=== PATIENT | male | born 1955 | race Caucasian/White ===

== ENCOUNTER → 2018-05-14 15:24 | Outpatient (CLI) | payer OTHER, SELFPAY | PROVIDERS: Family Provider Family Medicine; PCP Family Medicine; Visit Provider Orthopaedic Surgery | DX: M25.531 Pain in right wrist (principal) | CPT/HCPCS: 73110 ==

== ENCOUNTER 2022-12-09 14:05 | Emergency (ER) | payer MEDICARE, OTHER, SELFPAY ==
[2022-12-09 14:05] VITALS: BP 142/96; PULSE 70; RESP 20; TEMP 36.4; O2SAT 99; BMI 27.8
[2022-12-09 14:23] VITALS: BP 142/96; PULSE 70; RESP 20; TEMP 36.4; O2SAT 99
--- NOTE | 2022-12-09 14:42 | EKG12_ITS ---
Test Reason : SOB Blood Pressure : / mmHG Vent. Rate : 061 BPM Atrial Rate : 061 BPM P-R Int : 172 ms QRS Dur : 108 ms QT Int : 410 ms P-R-T Axes : 036 -28 055 degrees QTc Int : 412 ms Normal sinus rhythm with sinus arrhythmia Junctional ST depression, probably normal Borderline ECG Confirmed by ALFREDO SHEPARD, JENNY ([id number]), content editor JUDY ORDONEZ ([id number]) on 12/11/2022 11:15:44 AM Referred By: FRANCISCO/MARCIO Confirmed By:NOHELIA FUENTES MD
--- NOTE | 2022-12-09 14:43 | ED.VIS.DYS ---
HPI History of Present Illness Chief Complaint: Shortness of Breath Detail of Chief Complaint: Shortness of breath Informant: patient Narrative Narrative: Patient presents to the emergency department chief complaint of shortness of breath that started last evening. He has some mild chest discomfort which she has had in the past and thought it was indigestion. Discomfort does not seem to radiate anywhere. Does not seem to be exertional. Patient had some sinus issues that started 3 weeks ago that he used home remedies for but did not get better so a week ago went to primary care physician's office and was started on prednisone as well as Zithromax and albuterol. Patient thought he was started to feel better until last night. He denies fever. He denies recent travel or surgery. He has no heart history. He does have history of cholesterol. [facility] Medical History (Updated 12/09/22 @ 15:[address] Jennifer Vivas, ) High cholesterol Home Medications aspirin 81 mg tablet,delayed release 81 mg PO DAILY 05/14/18 [History Last Taken Unknown] prednisone 20 mg tablet 20 mg PO BID #6 tabs 12/09/22 [Rx Last Taken Unknown] rosuvastatin 5 mg tablet 5 mg PO DAILY 12/09/22 [History Last Taken Unknown] Allergy/AdvReac Type Severity Reaction Status Date / Time No Known Allergies Allergy Unverified 12/09/22 14:09 Family History (Updated 05/14/18 @ 15:01 by Marian Watts) Father Heart disease Surgical History (Updated 04/10/22 @ 18:32 by Desirae Mercado) H/O repair of rotator cuff H/O right knee surgery h/o right wrist fracture Social History (Updated 05/23/18 @ 17:[address] Kathy Lucas, ) Smoking Status: Never smoker ROS ROS ED Review of Systems ROS Unobtainable: other Constitutional Constitutional ED: Reports lethargy; Denies chills, fever(s), sweats or weight loss Eyes Eyes: Denies blurry vision, change in vision or diplopia ENT ENT ED: Denies rhinorrhea or sore throat Cardiovascular Cardiovascular: Reports chest pain; Denies orthopnea or racing heartbeat Respiratory/Chest Respiratory/Chest: Reports dyspnea; Denies cough, dyspnea on exertion, orthopnea or sputum Gastrointestinal Gastrointestinal: Denies abdominal pain, diarrhea, nausea or vomiting Genitourinary Genitourinary ED: Denies dysuria, hematuria or urinary frequency Musculoskeletal Musculoskeletal: Denies arthralgias, back pain, myalgias or neck pain Integumentary Denies abscess, Abrasions or rash Neurologic Neurologic: Denies headache(s) or weakness Psychiatric Psychiatric: Denies anxiety, depression or suicidal thoughts Endocrine Endocrinology: Denies polydipsia, polyphagia or polyuria Hematologic/Lymphatic Hematologic/Lymphatic: Denies easy bleeding, easy bruising or lymphadenopathy Allergic/Immunologic Allergic/Immunologic ED: Denies mouth swelling, tongue swelling or urticaria EXAM Physical Exam Const Vital Signs: 12/09/22 14:05 12/09/22 14:18 12/09/22 14:23 Temperature 97.6 F L 97.6 F L Temperature Source Temporal Temporal Pulse Rate 70 70 Respiratory Rate 20 H 20 H Respiratory Effort Normal Respiratory Depth Normal Respiratory Pattern Normal Blood Pressure 142/96 H 142/96 H Blood Pressure Mean 111 111 Pulse Ox 99 99 Oxygen Delivery Method Room Air Room Air 12/09/22 14:56 Temperature Temperature Source Pulse Rate 55 L Respiratory Rate 18 Respiratory Effort Respiratory Depth Respiratory Pattern Blood Pressure Blood Pressure Mean Pulse Ox Oxygen Delivery Method Positive well nourished and well developed General Appearance ED: well developed and NAD HEENT Reports TM's clear and moist mucous membranes normocephalic and atraumatic; Negative for trauma or tenderness Tympanic Membrane ED: Yes TM's clear Eyes PERRL and EOMs intact bilaterally General Eye ED: Negative for pale conjunctiva or scleral icterus Neck no lymphadenopathy, supple and no JVD General: Negative for tenderness Chest Wall inspection of chest normal and palpation of chest normal Chest: Negative for tenderness Resp normal respiratory effort and clear to auscultation bilaterally Effort and Inspection: Negative for respiratory distress or pain with movement Auscultation: wheezes; Negative for rhonchi or diminished lung sounds Cardio regular rate, regular rhythm, S1 normal heart sound, S2 normal heart sound and no murmurs Peripheral Pulses: pulses 2+ throughout GI normal to inspection, nondistended, normoactive bowel sounds, soft to palpation, non-tender, non-distended and no masses Back/Spine no CVA tenderness and no thoracic nor lumbar tenderness Extremity normal to inspection General Extremety ED: Negative for edema General Extremity: Negative for edema Neuro oriented x3, CN's II-XII intact bilaterally, no sensory deficits noted and gait normal Sensorium / Orientation: awake, alert, oriented to person, oriented to place and oriented to time Motor Exam: strength 5/5 throughout and strength abnormal Psych mental status grossly normal Skin no rashes or lesions noted and no wounds MDM MDM MDM Narrative Medical decision making narrative: Patient presents with nonspecific dyspnea and nondescript chest discomfort that he has had for over 19 hours. EKG obtained was sinus at 61 with no significant changes. Troponin was normal. D-dimer normal. BNP normal chest x-ray unremarkable. Lab work-up unremarkable. He was given a DuoNeb aerosol and did feel improved with it. At this time I will start him on prednisone for 3 more days. He is to continue with albuterol every 4 hours for the next 24 hours and follow-up with his primary care physician 3 to 5 days. Patient advised to return if exertional dyspnea, worsening chest pain, or condition should worsen anyway. Clinically I do not feel he is having an acute coronary syndrome. Lab Data Attestation: I reviewed the patient's lab results. Labs: Laboratory Results - last 24 hr 12/09/22 12/09/22 12/09/22 14:53 14:53 14:53 WBC 5.8 RBC 6.01 Hgb 18.4 H* Hct 53.4 MCV 88.9 MCH 30.6 MCHC 34.5 RDW Std Deviation 41.6 RDW Coeff of Anu 12.7 Plt Count 164 MPV 10.8 Immature Gran % (Auto) 0.500 Neut % (Auto) 73.6 H Lymph % (Auto) 16.5 L [place] % (Auto) 7.3 Eos % (Auto) 1.4 Baso % (Auto) 0.7 Absolute Neuts (auto) 4.2 Absolute Lymphs (auto) 0.95 Nucleated RBC % 0 D-Dimer Quant (PE/DVT) 0.33 Sodium 139 Potassium 3.8 Chloride 108 H Carbon Dioxide 25.0 Anion Gap 6 BUN 19 H Creatinine 1.16 Estim Creat Clear Calc 66.90 Est GFR (MDRD) Af Amer 80 Est GFR (MDRD) Non-Af 66 BUN/Creatinine Ratio 16.4 Glucose 126 H Calcium 10.0 Troponin I High Sens 6 B-Natriuretic Peptide 12/09/22 14:53 WBC RBC Hgb Hct MCV MCH MCHC RDW Std Deviation RDW Coeff of Anu Plt Count MPV Immature Gran % (Auto) Neut % (Auto) Lymph % (Auto) [place] % (Auto) Eos % (Auto) Baso % (Auto) Absolute Neuts (auto) Absolute Lymphs (auto) Nucleated RBC % D-Dimer Quant (PE/DVT) Sodium Potassium Chloride Carbon Dioxide Anion Gap BUN Creatinine Estim Creat Clear Calc Est GFR (MDRD) Af Amer Est GFR (MDRD) Non-Af BUN/Creatinine Ratio Glucose Calcium Troponin I High Sens B-Natriuretic Peptide 32.9 Radiography Diagnostic Testing: Clinical Impression(s) from Imaging Studies Chest X-Ray 12/09/22 15:10 IMPRESSION: There are no acute findings. Electronically Signed: Jose D Jackson MD at 15:41 EDT , 1 view chest x-ray obtained interpreted by myself no acute disease process. There is no evidence of infiltrate or pneumothorax. Radiology in agreement. EKG Initial EKG: Attestation: I personally reviewed and interpreted this EKG as follows: Comments: Sinus rhythm with a rate of 61 bpm with no acute ST segment changes Discharge Plan Triage Chief Complaint: Shortness of Breath ED Provider: Jennfier Vivas Dx/Rx/DC Orders Clinical Impression: Acute dyspnea, Asthmatic bronchitis Instructions: ED Bronchitis with Wheezing (Adult), ED Dyspnea Prescriptions: New prednisone 20 mg tablet 20 mg PO BID Qty: 6 0RF No Action aspirin 81 mg tablet,delayed release (DR/EC) 81 mg PO DAILY rosuvastatin 5 mg tablet 5 mg PO DAILY Label Comments: TAKE 1 TABLET BY MOUTH EVERY DAY Primary Care Provider: Eladio Guzman NP Referrals: Eladio Guzman BODYWORK THERAPIST, BODYWORK THERAPIST-C [Primary Care Provider] - 3-5 Days Disposition Disposition: Home, Self Care
[2022-12-09] MEDS: Ipratropium/Albuterol Sulfate 3 ML AMPUL.NEB INHALATION (14:54)
[2022-12-09 14:56] VITALS: PULSE 55; RESP 18
--- NOTE | 2022-12-09 15:10 | RAD_ITS ---
STUDY: XR Chest 1 View 12/09/2022 3:19 PM REASON FOR EXAM: Male, 67 years old. CHEST PAIN dyspnea COMPARISON: None TECHNIQUE: XR Chest 1 View FINDINGS: There is no demonstrated pleural abnormality. Normal heart size. Normal mediastinum. Normal charlene. Prominent appearing increased interstitial lung markings. Normal visualized pulmonary arteries. There is atherosclerotic calcification of the aortic arch with tortuosity. There are diffuse degenerative changes of the visualized thoracic spine. There is degenerative osteoarthritis of the bilateral shoulders. There is no demonstrated abnormality of the visualized soft tissue structures of the upper abdomen. RAD/Chest 1 View (Portable) IMPRESSION: There are no acute findings. Electronically Signed: Jose D Jackson MD at 15:41 EDT ,
[2022-12-09 15:16] LABS: Absolute Lymphocyte Count 0.95 X10^3/uL (0.83-4.51); Absolute Neutrophil Count 4.2 X10^3/uL (2.0-7.7); Basophil# 0.04 X10^3/uL; Basophil% 0.7 % (0-1); D-Dimer Quantitative (DVT/PE) 0.33 FEU/ug/m (0.27-0.49); Eosinophil# 0.08 X10^3/uL; Eosinophils% 1.4 % (0-5); Hematocrit 53.4 % (40-54); Lymphocyte # 0.95 X10^3/ul (0.83-4.51); Lymphocyte % 16.5 % (19-41); Mean Corp Hgb Conc 34.5 g/dL (32-36); Mean Corpuscular Hgb 30.6 pg (27.0-32.0); Mean Corpuscular Volume 88.9 fL (80-94); Mean Platelet Vol. 10.8 fl (6.2-12.0); Monocyte# 0.42 X10^3/uL; Monocyte% 7.3 % (0-10); NRBC Flagged by Analyzer 0 % (0-5); Neutrophil # 4.23 X10^3/uL (2.7-7.7); Neutrophil % 73.6 % (47-70); Platelet Count 164 K/mm3 (150-450); RBC Distribution Width CV 12.7 % (11.6-14.6); RBC Distribution Width SD 41.6 fl (35.1-43.9); Red Blood Count 6.01 M/mm3 (4.6-6.2); White Blood Count 5.8 K/mm3 (4.4-11.0)
[2022-12-09 15:20] LABS: Hemoglobin 18.4 g/dL (13.0-16.5)
[2022-12-09 15:22] LABS: Anion Gap 6 (5-15); BUN 19 mg/dL (7-18); BUN/Creat Ratio 16.4 RATIO (10-20); Chloride 108 mmol/L (98-107); Creatinine, Serum 1.16 mg/dL (0.70-1.30); EST Glomerular Filtration Rate 66 mL/min (>60); Est Glom Filt Rate - Afr Amer 80 mL/min (>60); Glucose 126 mg/dL (74-106); Potassium 3.8 mmol/L (3.5-5.1); Sodium Level 139 mmol/L (136-145); Troponin-I HS 6 pg/mL (3.0-78.0)
[2022-12-09 15:40] LABS: BNP,B-Type NATRIURETIC PEPTIDE 32.9 pg/mL (0-100)
[2022-12-09 16:07] VITALS: BP 165/106; PULSE 59; RESP 18; O2SAT 97
--- NOTE | 2022-12-09 16:08 | ED.RN ---
IV REMOVED WITHOUT DIFFICULTY. INTACT.
[2022-12-11 13:10] LABS: Pathologist Review Reviewed
== END 2022-12-09 16:08 | disposition home or self-care (01) ==
PROVIDERS: Emergency Provider Emergency Medicine; PCP Nurse Practitioner Family; Visit Provider Emergency Medicine
DX: J45.909 Unspecified asthma, uncomplicated (principal); E78.00 Pure hypercholesterolemia, unspecified
CPT/HCPCS: 71045; 80048; 83880; 84484; 85025; 85379; 93005; 94640; 99284

== ENCOUNTER → 2023-01-16 | Outpatient (CLI) | payer MEDICARE, OTHER, SELFPAY ==
--- NOTE | 2023-01-16 09:35 | RAD_ITS ---
EXAMINATION: Air contrast UPPER GI SERIES INDICATION: Male, 67 years epigastric pain. Gastroesophageal reflux disease. FLUOROSCOPY TIME (if supplied): (0:47) minutes/seconds. 27.02 mGy. 17 images were obtained. TECHNIQUE: Radiographic and fluoroscopic images of the distal esophagus, stomach, and proximal small intestine were obtained following the oral ingestion of barium. COMPARISON: None. FINDINGS: There is no evidence for organomegaly, abnormal calcifications, or abnormal bowel gas pattern. The psoas margins and flank stripes are normal. The visualized osseous structures are normal. The mucosa of the esophagus, stomach and duodenum is normal in appearance without evidence for stricture, ulceration, mass or diverticulum. There is no evidence for hiatal hernia or gastroesophageal reflux. The stomach and duodenum are unremarkable. RAD/Upper GI Dual Contrast IMPRESSION: 1. Normal air-contrast upper gastrointestinal study. Electronically Signed: Lexx Barton MD at 10:06 EDT ,
[2023-01-17 06:09] LABS: H. Pylori Antibody (IgG) 0.17 (0.00-0.79)
== END | disposition home or self-care (01) ==
LOC: RAD 09:23
PROVIDERS: PCP Nurse Practitioner Family; Referring Provider Nurse Practitioner Family; Visit Provider Nurse Practitioner Family
DX: R10.13 Epigastric pain (principal); K29.70 Gastritis, unspecified, without bleeding; K21.9 Gastro-esophageal reflux disease without esophagitis
CPT/HCPCS: 36415; 74246; 86677